=== PATIENT | male | born 1965 | race American Indian/Alaskan Native ===

== ENCOUNTER 2020-06-06 04:00 | Emergency (ER) | payer SELFPAY ==
[2020-06-06 04:11] VITALS: BP 139/87
[2020-06-06] MEDS ORDERED: IBUPROFEN 600 MG TAB PO ONE (04:39)
[2020-06-06] MEDS ORDERED: ACETAMINOPHEN 500 MG TAB PO ONE (04:39)
--- NOTE | 2020-06-06 05:31 | Emergency Department Report ---
ED Extremity Problem HPI - General Chief complaint: Extremity Injury, Lower Stated complaint: PAIN IN BOTH FEET Source: patient Mode of arrival: Ambulatory Limitations: No Limitations - History of Present Illness Initial comments: Patient is a 54-year-old -[place] male with a history of hypertension who presents to the ED with complaint of acute onset persistent low back pain, bilateral foot and ankle pain for the last 1 week, worse in the last 2 days. Patient states that he is homeless and has been walking a lot in the last 1 week and now states that the bilateral foot and lower back pain have worsened. Patient denies dizziness, syncope, fall, traumatic injury, heavy lifting, fever, chills, dysuria, urinary frequency and urgency, hematuria, numbness and tingling or weakness of lower extremities bilaterally, neck pain, abdominal pain, chest pain or shortness of breath, nausea and vomiting or diarrhea. MD Complaint: extremity pain (bilateral foot pain; low back pain), joint paint (bilateral ankle and foot) -: Sudden, week(s) (1) Location: bilateral lower extremity (foot and ankle) History of Same: Yes -: Yes arthralgia, No associated dyspnea, No associated chest pain Radiation: distal Severity scale (0 -10): 5 Quality: aching, sharp Consistency: constant Improves with: nothing Worsens with: weight bearing, walking, exertion, palpation Associated Symptoms: denies other symptoms, arthralgias. denies: chest pain, shortness of breath, fever, myalgias, rash, other - Related Data Previous Rx's Medication Instructions Recorded Last Taken Type Ibuprofen [Motrin] 800 mg PO Q8HR PRN #30 tablet 06/06/20 Unknown Rx Allergies Allergy/AdvReac Type Severity Reaction Status Date / Time No Known Allergies Allergy Unverified 06/06/20 04:02 ED Review of Systems ROS: Stated complaint: PAIN IN BOTH FEET Other details as noted in HPI Constitutional: denies: chills, fever Eyes: denies: eye pain, eye discharge, vision change ENT: denies: ear pain, throat pain Respiratory: denies: cough, shortness of breath, wheezing Cardiovascular: denies: chest pain, palpitations Endocrine: no symptoms reported Gastrointestinal: denies: abdominal pain, nausea, diarrhea Genitourinary: denies: urgency, dysuria Musculoskeletal: back pain (low back pain), arthralgia (Bilateral foot pain), myalgia. denies: joint swelling Skin: denies: rash, lesions Neurological: denies: headache, weakness, paresthesias Psychiatric: denies: anxiety, depression Hematological/Lymphatic: denies: easy bleeding, easy bruising ED Past Medical Hx - Past Medical History Previous Medical History?: Yes Hx Hypertension: Yes - Surgical History Past Surgical History?: Yes Additional Surgical History: neck - Medications Home Medications: Home Medications Medication Instructions Recorded Confirmed Last Taken Type Ibuprofen [Motrin] 800 mg PO Q8HR PRN #30 tablet 06/06/20 Unknown Rx ED Physical Exam - General Limitations: No Limitations General appearance: alert, in no apparent distress - Head Head exam: Present: atraumatic, normocephalic, normal inspection - Eye Eye exam: Present: normal appearance, PERRL, EOMI Pupils: Present: normal accommodation - ENT ENT exam: Present: normal exam, normal orophraynx, mucous membranes moist, TM's normal bilaterally, normal external ear exam - Neck Neck exam: Present: normal inspection, full ROM - Respiratory Respiratory exam: Present: normal lung sounds bilaterally. Absent: respiratory distress, wheezes, rales, rhonchi, chest wall tenderness, accessory muscle use, decreased breath sounds - Cardiovascular Cardiovascular Exam: Present: regular rate, normal rhythm, normal heart sounds. Absent: systolic murmur, diastolic murmur, rubs, gallop - GI/Abdominal GI/Abdominal exam: Present: soft, normal bowel sounds. Absent: distended, tenderness, guarding, hyperactive bowel sounds, organomegaly - Extremities Exam Extremities exam: Present: normal inspection, full ROM, tenderness (Palpable bilateral ankle and foot tenderness), normal capillary refill. Absent: pedal edema, joint swelling, calf tenderness - Back Exam Back exam: Present: normal inspection, full ROM, tenderness (Palpable lumbosacral paraspinal musculoskeletal tenderness), muscle spasm, paraspinal tenderness. Absent: CVA tenderness (L), vertebral tenderness - Neurological Exam Neurological exam: Present: alert, oriented X3, CN II-XII intact, normal gait, reflexes normal - Psychiatric Psychiatric exam: Present: normal affect, normal mood - Skin Skin exam: Present: warm, dry, intact, normal color. Absent: rash ED Course Vital Signs 06/06/20 04:09 Temperature 98.1 F Pulse Rate 103 H Respiratory 18 Rate Blood Pressure 139/87 [Right] O2 Sat by Pulse 99 Oximetry ED Medical Decision Making - Medical Decision Making This is a 54-year-old -[place] male with a history of hypertension who presents to the ED with complaint of acute onset persistent low back pain, bilateral foot and ankle pain for the last 1 week, worse in the last 2 days. Patient states that he is homeless and has been walking a lot in the last 1 week and now states that the bilateral foot and lower back pain have worsened. In the ED, patient is alert and oriented x3 and is not in any distress, anxious and tachycardic in triage but afebrile. Patient was treated for pain in the ED and on reevaluation, patient's pain is well controlled medications. Patient tachycardia also resolved and patient felt better on reevaluation after being treated for pain in the ED. Patient was therefore discharged home on pain medications and advised follow-up with his primary care physician in 5 to 7 days for reevaluation or return to the ED immediately if symptoms get worse. - Differential Diagnosis Muscle strain; osteoarthritis; tendonitis; muscle spasm Critical care attestation.: If time is entered above; I have spent that time in minutes in the direct care of this critically ill patient, excluding procedure time. ED Disposition Clinical Impression: Spasm of muscle of lower back, Tendinitis of ankle Muscle strain of foot Qualifiers: Encounter type: initial encounter Laterality: unspecified laterality Qualified Code(s): S96.919A - Strain of unspecified muscle and tendon at ankle and foot level, unspecified foot, initial encounter Disposition: TO HOME OR SELFCARE Is pt being admited?: No Does the pt Need Aspirin: No Condition: Stable Instructions: Muscle Cramps and Spasms, [id number], Muscle Strain, [id number], Tendinitis, [id number], Arthritis, [id number] Additional Instructions: Your symptoms are likely due to muscle strain and muscle spasm versus osteoarthritis and tendinitis. Therefore take medication with food, drink plenty of fluids and follow-up with your primary care physician in 5 to 7 days for reevaluation. Return to the ED immediately if symptoms get worse. Prescriptions: Ibuprofen [Motrin] 800 mg PO Q8HR PRN #30 tablet PRN Reason: Pain , Severe (7-10) Referrals: [facility] [place] [Provider Group] - 3-5 Days Time of Disposition: 05:32 Print Language: CZECH
== END 2020-06-06 06:04 | disposition home or self-care (01) ==
LOC: ED 04:00
DX: S93.402A Sprain of unspecified ligament of left ankle, initial encounter (principal); S93.401A Sprain of unspecified ligament of right ankle, initial encounter; M62.830 Muscle spasm of back; I10 Essential (primary) hypertension; Z79.899 Other long term (current) drug therapy; X58.XXXA Exposure to other specified factors, initial encounter; Y93.89 Activity, other specified; Y92.89 Other specified places as the place of occurrence of the external cause; Y99.8 Other external cause status
CPT/HCPCS: 99282